=== PATIENT | male | born 1965 | race Caucasian/White ===

== ENCOUNTER 2020-09-11 09:29 | Outpatient (AMBR) | payer MEDICARE, MEDICAID, SELFPAY ==
--- NOTE | 2020-09-01 08:25 | PT.OIERPT ---
PT OP Initial Eval Patient Information Visit Reasons: right knee post op Medical Diagnosis: T84.498D Treatment Dx #1: Right Knee Weakness Treatment Dx #2: Right Knee Pain Start of Care: 09/01/20 Date of Onset: 07/24/20 Initial Assessment Subjective Pt is a 55 y/o male s/p right knee TKA revision 07/24/20 due to infection and scar tissue from earlier TKA. Pt stated that he received 9 sessions of homehealth PT with Brandi Baldwin. Pt still has limitation with deep squat, stairs, balance, recreational activities, uneven surface, and performing chores. Pt is retired and will like to be able to return back to [employer]. Objective Right Knee AROM: - 9 deg to 125 deg Right Knee MMTs Quads: 4-/5 Hs: 3/5 Right Hip MMTs Glute Med: 3/5 Glute Max: 3/5 SLS: 5 sec Assessment Pt demonstrate right knee strength deficits with pain s/p TKA revision leading to decline function. Pt will benefit from physical therapy to increase strength, mobility, and work on overall balance. Short Term and Custodial Goals 1) Increase right knee MMTs grossly to 4/5 in 6 wks to be able to perform squatting activities 2) Increase right hip MMTs grossly to 4-/5 in 6 wks to be able to perform recreational activities 3) Decrease knee pain to 2/10 in 6 wks to be able to perform chores 4) Increase SLS to 20 sec in 6 wks to be able to perform self care activities 5) Indep with HEP Treatment Plan 1) Manual Therapy 2) Therapeutic Exercises 3) Therapeutic Activities 4) Modalities (ice, heat) 5) Balance Training Frequency and Duration 2 x wk for 6 wks Certification Dates: 09/01/20 to 12/02/20 Office Procedures PT Procedures PT Date of Service: 09/01/20 OP PT Eval Mod Complex 30 minutes: Yes
--- NOTE | 2020-09-05 11:11 | PTNOTE_ITS ---
PT Outpatient Daily Note Date of Service: 09/05/20 OP Daily Note Visit Reasons: right knee post op Outpatient Physical Therapy Treatment Date: 09/05/20 Subjective: Pt mention that his knee feels good. Pt continues to perform his HEP given from homehealth PT. Pt stated that his only main limitation in the knee is the hamstring. Objective: Please see flow chart for list of ther ex performed Assessment: slight difficulty with TG squat due to pain but able to complete sets. Cues to relax Hs during STM. Post ice help decrease soreness Plan: Continue with PT Length of Time (minutes) of Treatment: 30 Minutes Office Procedures PT Procedures PT Date of Service: 09/01/20 OP PT Eval Mod Complex 30 minutes: Yes PT Procedures PT Date of Service: 09/05/20 Therapeutic Exercise 15 minutes: Yes Manual Assistant District Attorney 15 minutes: Yes
--- NOTE | 2020-09-11 10:35 | PTNOTE_ITS ---
PT Outpatient Daily Note Date of Service: 09/11/20 OP Daily Note Visit Reasons: right knee post op Outpatient Physical Therapy Treatment Date: 09/11/20 Subjective: Pt's knee is good but will like to be push more today with resistance. Pt notice decrease hamstring pain since last treatment session and can squat lower now. Objective: Please see flow chart for list of ther ex performed Assessment: tolerate exercises with minimal pain; decrease tension lateral hamstring after STM. Plan: Continue with PT Length of Time (minutes) of Treatment: 40 Minutes Office Procedures PT Procedures PT Date of Service: 09/01/20 OP PT Eval Mod Complex 30 minutes: Yes PT Procedures PT Date of Service: 09/05/20 Therapeutic Exercise 15 minutes: Yes Manual Continuous Pillowcase Cutter 15 minutes: Yes PT Procedures PT Date of Service: 09/11/20 Therapeutic Exercise 30 minutes: Yes Manual Continuous Pillowcase Cutter 15 minutes: Yes
== END 2020-09-11 23:59 | disposition home or self-care (01) ==
PROVIDERS: PCP Family Medicine; Referring Provider Family Medicine; Visit Provider Orthopaedic Surgery
DX: T84.498D Other mechanical complication of other internal orthopedic devices, implants and grafts, subsequent encounter (principal); R53.1 Weakness; M25.561 Pain in right knee
CPT/HCPCS: 97110; 97140; 97162

== ENCOUNTER 2020-09-28 09:54 | Outpatient (AMBR) | payer MEDICARE, MEDICAID, SELFPAY ==
--- NOTE | 2020-09-13 14:00 | PT.ODAYNRPT ---
PT Outpatient Daily Note Date of Service: 09/13/20 OP Daily Note Visit Reasons: right knee post op Outpatient Physical Therapy Treatment Date: 09/13/20 Subjective: Pt's knee pain (Hs) less. Pt feels pretty good just sore from previous session Objective: Please see flow chart for list of ther ex performed Assessment: tolerate exercsies; still exhibit adhesion at the lateral aspect of the hamstring relate to Pt's continue complaint about post knee pain. Decrease tension after STM. Pt advised to pace throughout PT session to conserve energy Plan: Continue with PT Length of Time (minutes) of Treatment: 40 Minutes Office Procedures PT Procedures PT Date of Service: 09/13/20 Therapeutic Exercise 30 minutes: Yes Manual Chair Car Attendant 15 minutes: Yes
--- NOTE | 2020-09-18 11:01 | PT.ODAYNRPT ---
PT Outpatient Daily Note Date of Service: 09/18/20 OP Daily Note Visit Reasons: right knee post op Outpatient Physical Therapy Treatment Date: 09/18/20 Subjective: Pt's hamstring pain is less. Pt notice that knee is feeling better each week. Pt's performing step exercises at home Objective: Please see flow chart for list of ther ex performed Assessment: tolerate exercises with minimal pain; decrease tension in hamstring after STM Plan: Continue with PT Length of Time (minutes) of Treatment: 30 Minutes Office Procedures PT Procedures PT Date of Service: 09/13/20 Therapeutic Exercise 30 minutes: Yes Manual Submarine Element Coordinator 15 minutes: Yes PT Procedures PT Date of Service: 09/18/20 Therapeutic Exercise 30 minutes: Yes
--- NOTE | 2020-09-22 10:39 | PT.ODAYNRPT ---
PT Outpatient Daily Note Date of Service: 09/22/20 OP Daily Note Visit Reasons: right knee post op Outpatient Physical Therapy Treatment Date: 09/22/20 Subjective: Pt mention that his hamstring pain is 98% better. Pt wants to do 2 more sessions and probably like to be release from care Objective: Please see flow chart for list of ther ex performed Assessment: tolerate exercises with minimal pain; decrease hamstring pain/tension noted Plan: Continue with PT Length of Time (minutes) of Treatment: 30 Minutes Office Procedures PT Procedures PT Date of Service: 09/13/20 Therapeutic Exercise 30 minutes: Yes Manual Ball Machine Operator 15 minutes: Yes PT Procedures PT Date of Service: 09/22/20 Therapeutic Exercise 30 minutes: Yes PT Procedures PT Date of Service: 09/18/20 Therapeutic Exercise 30 minutes: Yes
--- NOTE | 2020-09-26 11:23 | PT.ODAYNRPT ---
PT Outpatient Daily Note Date of Service: 09/26/20 OP Daily Note Visit Reasons: right knee post op Outpatient Physical Therapy Treatment Date: 09/26/20 Subjective: Pt's knee is better and feeling good. Pt feels that he's ready to be release from care after the next session Objective: Please see flow chart for list of ther ex performed Assessment: tolerate exercises with minimal pain Plan: Continue with PT Length of Time (minutes) of Treatment: 30 Minutes Office Procedures PT Procedures PT Date of Service: 09/13/20 Therapeutic Exercise 30 minutes: Yes Manual Ext Js Developer 15 minutes: Yes PT Procedures PT Date of Service: 09/22/20 Therapeutic Exercise 30 minutes: Yes PT Procedures PT Date of Service: 09/26/20 Therapeutic Exercise 15 minutes: Yes Manual Ext Js Developer 15 minutes: Yes PT Procedures PT Date of Service: 09/18/20 Therapeutic Exercise 30 minutes: Yes
--- NOTE | 2020-09-28 13:02 | PT.ODS1RPT ---
PT OP Progress/Discharge Note Date of Service: 09/28/20 Progress Note/DC Note Progress Note/Discharge Note: DC Note Patient Information Visit Reasons: right knee post op Medical Diagnosis: T84.498D Treatment Dx #1: Right Knee Weakness Treatment Dx #2: Right Knee Pain Service Continue Service or Discharge: Discharge Discharge Date: 09/28/20 Status Subjective: Pt mention that his knee feels good. Pt has been able to perform all ADLs, chores, cook, clean, and perform recreational activities. Pt feels ready to be release from physical therapy and will continue exercises at home. Objective: Right Knee AROM: -5 deg to 125 deg Right Knee MMTs Quads: 4/5 Hs: 4-/5 Right Hip MMTs Glute Med: 3+/5 Glute Max: 3+/5 SLS: 20 sec Assessment: Pt demonstrate functional right knee ROM and strength allowing him to resume ADLs, chores, ambulate, and perform functional tasks with minimal limitation. Pt will no longer benefit from due to meeting all set goals in physical therapy, thank you for your referrals. Plan: D/C home with [facility] and follow up with MD TORRES Office Procedures PT Procedures PT Date of Service: 09/13/20 Therapeutic Exercise 30 minutes: Yes Manual Food Services Coordinator 15 minutes: Yes PT Procedures PT Date of Service: 09/22/20 Therapeutic Exercise 30 minutes: Yes PT Procedures PT Date of Service: 09/26/20 Therapeutic Exercise 15 minutes: Yes Manual Food Services Coordinator 15 minutes: Yes PT Procedures PT Date of Service: 09/28/20 Therapeutic Exercise 30 minutes: Yes PT Procedures PT Date of Service: 09/18/20 Therapeutic Exercise 30 minutes: Yes
== END 2020-10-12 23:59 | disposition home or self-care (01) ==
PROVIDERS: PCP Orthopaedic Surgery; Referring Provider Orthopaedic Surgery; Visit Provider Orthopaedic Surgery
DX: T84.498D Other mechanical complication of other internal orthopedic devices, implants and grafts, subsequent encounter (principal); R53.1 Weakness; M25.561 Pain in right knee
CPT/HCPCS: 97110; 97140

== ENCOUNTER → 2024-10-27 | Outpatient (CLI) | payer MEDICARE, MEDICAID, SELFPAY ==
[2024-10-27 09:01] LABS: Collection Type, Urine Clean Catch
[2024-10-27 09:39] LABS: Bilirubin,Urine Negative (Negative); Blood,Urine Negative (Negative); Clarity,Urine Clear (Clear/Hazy); Color,Urine Lt-Yellow (Lt Yel-Yel); Culture Indicated,Urine Not Indicated; Glucose, Urine Negative (Negative); Ketones,Urine Negative (Negative); Leukocyte Esterase,Urine Negative (Negative); Nitrite,Urine Negative (Negative); PH,Urine 6.5 (5.0-7.0); Protein,Urine Negative (Neg - Trace); RBC,Urine < 1 /hpf (0-3); Specific Gravity,Urine 1.016 (1.001-1.035); Squamous Epithelial Cell,Urine 1 /hpf (0-5); Urobilinogen,Urine Negative mg/dL (0.0-1.0); WBC,Urine 1 /hpf (0-5)
[2024-10-27 09:46] LABS: Basophils # (Auto) 0.1 Thou/mm3 (0.0-0.2); Basophils % (Auto) 1 % (0-2.5); Eosinophils # (Auto) 1.4 Thou/mm3 (0.0-0.5); Eosinophils % (Auto) 16 % (0-10); Hematocrit 42.4 % (41.0-53.0); Immature Granulocytes % (Auto) 0 % (0-0); Immature Granulocytes Auto 0.03 Thou/mm3 (0.00-0.00); Lymphocytes # (Auto) 1.9 Thou/mm3 (1.0-4.8); Lymphocytes % (Auto) 23 % (10-50); Mean Corpuscular HGB Conc 35.4 g/dl (31.0-37.0); Mean Corpuscular Hemoglobin 31.9 pg (25.0-35.0); Mean Corpuscular Volume 90 fL (80-100); Monocytes # (Auto) 0.5 Thou/mm3 (0.0-0.8); Monocytes % (Auto) 6 % (0-12); Neutrophils # (Auto) 4.5 Thou/mm3 (1.8-7.7); Neutrophils % (Auto) 53 % (37-80); Nucleated Red Blood Cell % 0 /100 WBC (0); Platelet Count 320 Thou/mm3 (140-440); RDW Standard Deviation 40.8 fL (35.1-43.9); White Blood Count 8.5 Thou/mm3 (3.8-10.6)
[2024-10-27 09:56] LABS: Alanine Aminotransferase 36 U/L (10-49); Albumin, Serum 4.7 gm/dL (3.4-4.8); Alkaline Phosphatase 43 U/L (46-116); Anion Gap 8 (7-16); Aspartate Amino Transferase 25 U/L (0-34); BUN/Creatinine Ratio 16 Ratio (12-20); Bilirubin,Direct 0.2 mg/dL (0.0-0.3); Bilirubin,Total 0.5 mg/dL (0.3-1.2); Blood Urea Nitrogen 23 mg/dL (9-23); Calcium 9.7 mg/dL (8.3-10.6); Carbon Dioxide 26.7 mMol/L (20.0-31.0); Chloride 104 mMol/L (98-107); Cholesterol 161 mg/dL (132-200); Creatinine (Component) 1.4 mg/dL (0.6-1.3); Glucose 95 mg/dL (74-106); HDL Cholesterol 32 mg/dL (40-60); LDL Cholesterol,Calculated 73 mg/dL (0-130); Osmolality,Calculated 281 (275-295); Potassium 3.8 mMol/L (3.4-5.1); Sodium 139 mMol/L (136-145); Total Protein 6.8 gm/dL (5.7-8.2); Triglycerides 281 mg/dL (30-150); eGFR 58 See Note
== END | disposition home or self-care (01) ==
PROVIDERS: PCP Family Medicine; Referring Provider Family Medicine; Visit Provider Family Medicine
DX: I25.10 Atherosclerotic heart disease of native coronary artery without angina pectoris (principal); N20.0 Calculus of kidney; E78.5 Hyperlipidemia, unspecified
CPT/HCPCS: 36415; 80048; 80061; 80076; 81001; 85025

== ENCOUNTER 2025-05-31 21:41 | Emergency (ER) | payer OTHER, MEDICAID, SELFPAY ==
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
[2025-05-31 21:54] VITALS: BP 145/90; PULSE 79; RESP 17; TEMP 36.8; O2SAT 98; BMI 29.3
--- NOTE | 2025-05-31 21:54 | XR_ITS ---
Examination: AP chest single view TECHNIQUE: AP portable upright chest single view Date and time: May 31, 2025 10:14 PM COMPARISON: 07/07/2018 INDICATIONS: Chest pain today FINDINGS: Normal heart size. Lungs are clear. The osseous structures are intact IMPRESSION: No active disease
[2025-05-31 22:10] VITALS: PULSE 100; O2SAT 99
[2025-05-31 22:25] LABS: Basophils # (Auto) 0.1 Thou/mm3 (0.0-0.2); Basophils % (Auto) 1 % (0-2.5); Eosinophils # (Auto) 1.1 Thou/mm3 (0.0-0.5); Eosinophils % (Auto) 13 % (0-10); Hematocrit 38.5 % (41.0-53.0); Hemoglobin 13.7 g/dL (13.5-16.0); Immature Granulocytes Auto 0.03 Thou/mm3 (0.00-0.00); Lymphocytes # (Auto) 1.9 Thou/mm3 (1.0-4.8); Lymphocytes % (Auto) 23 % (10-50); Mean Corpuscular HGB Conc 35.6 g/dl (31.0-37.0); Mean Corpuscular Hemoglobin 32.2 pg (25.0-35.0); Mean Corpuscular Volume 90 fL (80-100); Monocytes # (Auto) 0.6 Thou/mm3 (0.0-0.8); Monocytes % (Auto) 7 % (0-12); Neutrophils # (Auto) 4.7 Thou/mm3 (1.8-7.7); Neutrophils % (Auto) 56 % (37-80); Nucleated Red Blood Cell # 0.00 Thou/mm3 (0.00-0.00); Nucleated Red Blood Cell % 0 /100 WBC (0); Platelet Count 275 Thou/mm3 (140-440); RDW Standard Deviation 41.8 fL (35.1-43.9); Red Blood Count 4.26 Miln/mm3 (4.50-5.90); White Blood Count 8.3 Thou/mm3 (3.8-10.6)
[2025-05-31 22:43] LABS: D-Dimer < 250 ng/mL (<600)
[2025-05-31 22:44] LABS: B-Type Natriuretic Peptide 76 pg/mL (0-100)
[2025-05-31 22:52] LABS: Alanine Aminotransferase 18 U/L (10-49); Albumin, Serum 4.5 gm/dL (3.4-4.8); Albumin/Globulin Ratio 2.4 (1.2-2.2); Alcohol, Blood Medical < 3.0 mg/dL (0-10.0); Alkaline Phosphatase 46 U/L (46-116); Anion Gap 9 (7-16); Aspartate Amino Transferase 23 U/L (0-34); BUN/Creatinine Ratio 10 Ratio (12-20); Bilirubin,Direct 0.2 mg/dL (0.0-0.3); Bilirubin,Total 0.5 mg/dL (0.3-1.2); Blood Urea Nitrogen 17 mg/dL (9-23); Calcium 9.9 mg/dL (8.3-10.6); Calcium (Corrected) 9.9 mg/dL (8.5-10.1); Carbon Dioxide 25.5 mMol/L (20.0-31.0); Chloride 110 mMol/L (98-107); Creatinine (Component) 1.7 mg/dL (0.6-1.3); Estimated Creatinine Clearance 61.0 mL/min (>60); Globulin 1.9 gm/dL (2.3-3.5); Glucose 143 mg/dL (74-106); Lipase 80 U/L (12-53); Magnesium 1.9 mg/dL (1.6-2.6); Osmolality,Calculated 290 (275-295); Potassium 3.4 mMol/L (3.4-5.1); Sodium 144 mMol/L (136-145); Thyroid Stimulating Hormone 1.19 uIU/mL (0.55-4.78); Total Protein 6.4 gm/dL (5.7-8.2); Troponin I < 0.020 ng/mL (0.0-0.045); eGFR 46 See Note
[2025-05-31] MEDS: MORPHINE SULF INJ 10 MG/ML VIAL 2 MG IVP (22:52)
[2025-05-31] MEDS: ONDANSETRON INJ 2 MG/ML INJ 2 ML 4 MG IVP (22:53)
[2025-05-31 23:02] LABS: Collection Type, Urine Clean Catch; Squamous Epithelial Cell,Urine 0 /hpf (0-5)
[2025-05-31 23:06] LABS: Bilirubin,Urine Negative (Negative); Blood,Urine Negative (Negative); Clarity,Urine Clear (Clear/Hazy); Color,Urine Lt-Yellow (Lt Yel-Yel); Culture Indicated,Urine Not Indicated; Glucose, Urine 1+ (Negative); Hyaline Casts,Urine < 1 /hpf (0-1); Ketones,Urine Negative (Negative); Leukocyte Esterase,Urine Negative (Negative); Nitrite,Urine Negative (Negative); PH,Urine 7.0 (5.0-7.0); Protein,Urine Negative (Neg - Trace); RBC,Urine 1 /hpf (0-3); Specific Gravity,Urine 1.012 (1.001-1.035); Urobilinogen,Urine Negative mg/dL (0.0-1.0); WBC,Urine 1 /hpf (0-5)
[2025-05-31 23:15] LABS: Amphetamine/Methamp Scrn,U Negative (Negative); Barbiturate Screen,Urine Negative (Negative); Benzodiazepines Screen,Urine Negative (Negative); Benzoylecgonine Screen, Ur Negative (Negative); Fentanyl Screen,Urine Negative (Negative); Opiate Screen,Urine Negative (Negative); THC Screen,Urine Positive (Negative)
== END 2025-05-31 23:46 | disposition home or self-care (01) ==
PROVIDERS: Emergency Provider Emergency Medicine; PCP Family Medicine
DX: R07.89 Other chest pain (principal); I25.10 Atherosclerotic heart disease of native coronary artery without angina pectoris; I25.2 Old myocardial infarction; Z95.5 Presence of coronary angioplasty implant and graft
CPT/HCPCS: 36415; 71045; 80053; 80307; 80320; 81001; 82248; 83690; 83735; 83880; 84443; 84484; 85025; 85379; 87400; 87811; 93005; 96374; 96375; 99284; J2270; J2405; G0480

== ENCOUNTER → 2025-07-28 | Outpatient (CLI) | payer MEDICARE, MEDICAID, SELFPAY ==
[2025-07-28 12:22] LABS: Basophils # (Auto) 0.1 Thou/mm3 (0.0-0.2); Basophils % (Auto) 1 % (0-2.5); Eosinophils # (Auto) 1.4 Thou/mm3 (0.0-0.5); Eosinophils % (Auto) 15 % (0-10); Hematocrit 39.6 % (41.0-53.0); Hemoglobin 14.2 g/dL (13.5-16.0); Immature Granulocytes Auto 0.04 Thou/mm3 (0.00-0.00); Lymphocytes # (Auto) 2.0 Thou/mm3 (1.0-4.8); Lymphocytes % (Auto) 23 % (10-50); Mean Corpuscular HGB Conc 35.9 g/dl (31.0-37.0); Mean Corpuscular Hemoglobin 32.1 pg (25.0-35.0); Mean Corpuscular Volume 89 fL (80-100); Monocytes # (Auto) 0.6 Thou/mm3 (0.0-0.8); Monocytes % (Auto) 7 % (0-12); Neutrophils # (Auto) 4.7 Thou/mm3 (1.8-7.7); Neutrophils % (Auto) 53 % (37-80); Nucleated Red Blood Cell # 0.00 Thou/mm3 (0.00-0.00); Nucleated Red Blood Cell % 0 /100 WBC (0); Platelet Count 307 Thou/mm3 (140-440); RDW Standard Deviation 41.0 fL (35.1-43.9); Red Blood Count 4.43 Miln/mm3 (4.50-5.90); White Blood Count 8.8 Thou/mm3 (3.8-10.6)
[2025-07-28 12:37] LABS: INR 1.0 (0.9-1.3); Partial Thromboplastin Time 25.3 Seconds (22.0-36.0); Prothrombin Time 10.7 Seconds (9.0-12.2)
[2025-07-28 12:43] LABS: Anion Gap 9 (7-16); BUN/Creatinine Ratio 11 Ratio (12-20); Blood Urea Nitrogen 16 mg/dL (9-23); Calcium 9.5 mg/dL (8.3-10.6); Carbon Dioxide 26.6 mMol/L (20.0-31.0); Chloride 106 mMol/L (98-107); Creatinine (Component) 1.4 mg/dL (0.6-1.3); Glucose 99 mg/dL (74-106); Osmolality,Calculated 284 (275-295); Potassium 3.7 mMol/L (3.4-5.1); Sodium 142 mMol/L (136-145); eGFR 58 See Note
== END | disposition home or self-care (01) ==
LOC: COPL 10:49
PROVIDERS: PCP Family Medicine; Referring Provider Internal Medicine; Visit Provider Internal Medicine
DX: I25.10 Atherosclerotic heart disease of native coronary artery without angina pectoris (principal); I48.91 Unspecified atrial fibrillation
CPT/HCPCS: 36415; 80048; 85025; 85610; 85730

== ENCOUNTER → 2025-09-16 | Outpatient (CLI) | payer MEDICARE, MEDICAID, SELFPAY ==
[2025-09-16 09:46] LABS: Basophils # (Auto) 0.1 Thou/mm3 (0.0-0.2); Basophils % (Auto) 2 % (0-2.5); Eosinophils # (Auto) 1.5 Thou/mm3 (0.0-0.5); Eosinophils % (Auto) 16 % (0-10); Hematocrit 41.5 % (41.0-53.0); Hemoglobin 14.7 g/dL (13.5-16.0); Immature Granulocytes Auto 0.06 Thou/mm3 (0.00-0.00); Lymphocytes # (Auto) 2.0 Thou/mm3 (1.0-4.8); Lymphocytes % (Auto) 21 % (10-50); Mean Corpuscular HGB Conc 35.4 g/dl (31.0-37.0); Mean Corpuscular Hemoglobin 32.4 pg (25.0-35.0); Mean Corpuscular Volume 91 fL (80-100); Monocytes # (Auto) 0.6 Thou/mm3 (0.0-0.8); Monocytes % (Auto) 7 % (0-12); Neutrophils # (Auto) 5.3 Thou/mm3 (1.8-7.7); Neutrophils % (Auto) 55 % (37-80); Nucleated Red Blood Cell # 0.00 Thou/mm3 (0.00-0.00); Nucleated Red Blood Cell % 0 /100 WBC (0); Platelet Count 294 Thou/mm3 (140-440); RDW Standard Deviation 44.7 fL (35.1-43.9); Red Blood Count 4.54 Miln/mm3 (4.50-5.90); White Blood Count 9.6 Thou/mm3 (3.8-10.6)
[2025-09-16 09:55] LABS: INR 1.0 (0.9-1.3); Partial Thromboplastin Time 25.6 Seconds (22.0-36.0); Prothrombin Time 10.6 Seconds (9.0-12.2)
[2025-09-16 10:06] LABS: Alanine Aminotransferase 49 U/L (10-49); Albumin, Serum 4.7 gm/dL (3.4-4.8); Alkaline Phosphatase 43 U/L (46-116); Anion Gap 7 (7-16); Aspartate Amino Transferase 42 U/L (0-34); BUN/Creatinine Ratio 10 Ratio (12-20); Bilirubin,Direct 0.3 mg/dL (0.0-0.3); Bilirubin,Total 0.7 mg/dL (0.3-1.2); Blood Urea Nitrogen 14 mg/dL (9-23); Calcium 9.2 mg/dL (8.3-10.6); Carbon Dioxide 27.2 mMol/L (20.0-31.0); Cardiac Risk Estimate 4.7 RATIO (4.0-6.7); Chloride 106 mMol/L (98-107); Cholesterol 151 mg/dL (132-200); Creatinine (Component) 1.4 mg/dL (0.6-1.3); Glucose 98 mg/dL (74-106); HDL Cholesterol 32 mg/dL (40-60); LDL Cholesterol,Calculated 71 mg/dL (0-130); Osmolality,Calculated 279 (275-295); Potassium 4.0 mMol/L (3.4-5.1); Sodium 140 mMol/L (136-145); Total Protein 6.9 gm/dL (5.7-8.2); Triglycerides 239 mg/dL (30-150); eGFR 57 See Note
== END | disposition home or self-care (01) ==
LOC: COPL 09:02
PROVIDERS: PCP Family Medicine; Referring Provider Family Medicine; Visit Provider Internal Medicine
DX: I25.10 Atherosclerotic heart disease of native coronary artery without angina pectoris (principal); I48.91 Unspecified atrial fibrillation; E78.9 Disorder of lipoprotein metabolism, unspecified
CPT/HCPCS: 36415; 80048; 80061; 80076; 85025; 85610; 85730